=== PATIENT | female | born 1980 | race Caucasian/White ===

== ENCOUNTER 2017-04-21 15:22 | Emergency (ER) | payer SELFPAY ==
[~2017-04-21] VITALS: Ht 167.6 cm; Wt 110.9 kg
[~2017-04-21 15:22] MED LIST: CEPH-264 PO; FAMO-63 PO; NAPR500T PO
--- NOTE | 2017-04-21 15:56 | RAD ---
Chest, 2 views, 04/21/2017: History: Chest pain Comparison is made to a study from 06/18/2009. The heart size and pulmonary vascularity are normal. No pulmonary infiltrates are seen. There is no evidence of pleural fluid. A mild thoracic scoliosis may be positional. IMPRESSION: No acute cardiopulmonary abnormality is detected.
--- NOTE | 2017-04-21 15:56 | EKG ---
[address] [address] Test Date: 2017-04-21 Test Time: 15:32:34 Pat Name: CLEMENCIA IVAN Department: Room: Gender: F [employer] Solderer: : 1980 Requested By: BOO GRAY Order Number: [id number] Reading MD: Fran Barraza Measurements Intervals [place] Rate: 81 P: 51 OR: 168 QRS: 32 QRSD: 80 T: 57 QT: 370 QTc: 435 Interpretive Statements SINUS RHYTHM Electronically Signed On 04-28-2017 8:16:55 CDT by Fran Barraza
[2017-04-21] MEDS ORDERED: LIDO:MAALOX 1:1 20 ML SINGLE DOSE PO ONE (16:00)
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
[2017-04-21] MEDS ORDERED: PANTOPRAZOLE 40 MG TABLET. PO ONE (16:30)
[2017-04-21] MEDS ORDERED: PANT40TA3 PO (16:30)
[2017-04-21 16:36] VITALS: BP 107/65
== END 2017-04-21 16:45 | disposition home or self-care (01) ==
LOC: ER 15:22
DX: K21.9 Gastro-esophageal reflux disease without esophagitis (principal); Z88.5 Allergy status to narcotic agent
CPT/HCPCS: 71020; 93005; 99284-25

== ENCOUNTER 2017-09-11 06:26 | Emergency (ER) | payer SELFPAY ==
[~2017-09-11] VITALS: Ht 167.6 cm; Wt 110.9 kg
[~2017-09-11 06:26] MED LIST changes: +NAPR-683 PO; -NAPR500T PO; +PANT40TA3 PO
[2017-09-11 06:28] VITALS: BP 121/77
--- NOTE | 2017-09-11 06:29 | PHYS DOC ---
Past History Past Medical History: No Pertinent History, Other Past Surgical History: Tubal ligation Additional Past Surgical Histo: D&C Smoking: Non-smoker Alcohol Use: None Drug Use: None Adult General Chief Complaint Chief Complaint: nausea, vomiting, diarrhea and headache [facility] HPI Patient is a 37 year old female who presents with migraine headache, nausea, vomiting, diarrhea. She states last night she developed a migraine headache after she was visiting someone in the hospital. She states she took her Excedrin and try to go to bed and then at 2 AM this morning she woke up with abdominal cramps and vomited. She states first time she vomited she saw us a little parts of blood mixed in with green stuff that she thought was bile. She states she can taste blood in her mouth. She then vomited several more times she states since 2 AM recheck here she vomited about a dozen times. She denies any other blood or tasting blood in the subsequent episodes of vomiting. She states when she gets the ER she had a loose stool in the waiting room and then as soon as she came back to the room she had a second loose stool. According to nurse they were green in nature and no blood noted. She states her abdominal pain is crampy in nature and feels better after she has a bowel movement. She states her headache is her normal migraine headache. She denies any fevers chills or neck stiffness. She states usually Excedrin helps but occasionally she has to take narcotic pain medicine at home and go to bed or get over it. She denies any recent traveling I states, she denies any other sick contacts currently. Review of Systems Review of Systems Constitutional: Denies fever or chills [] Eyes: Denies change in visual acuity, redness, or eye pain [] HENT: Denies nasal congestion or sore throat [] Respiratory: Denies cough or shortness of breath [] Cardiovascular: No additional information not addressed in HPI [] GI: Positive for abdominal pain, nausea, vomiting,diarrhea, denies any bloody stools : Denies dysuria or hematuria [] Musculoskeletal: Denies back pain or joint pain [] Integument: Denies rash or skin lesions [] Neurologic: Positive for headache, Denies focal weakness or sensory changes [] Endocrine: Denies polyuria or polydipsia [] All other systems were reviewed and found to be within normal limits, except as documented in this note. Allergies Allergies Allergies Coded Allergies Type Severity Reaction Last Updated Verified Penicillins Allergy Unknown 04/21/17 Yes acetaminophen Allergy Unknown 04/21/17 Yes amoxicillin Allergy Unknown 04/21/17 Yes shellfish derived Allergy Unknown 04/21/17 Yes codeine Adverse Reaction Intermediate 02/18/16 Yes Physical Exam Physical Exam Constitutional: Well developed, well nourished, no acute distress, non-toxic appearance. [] HENT: Normocephalic, atraumatic, bilateral external ears normal, oropharynx moist, no oral exudates, nose normal. [] Eyes: PERRLA, EOMI, conjunctiva normal, no discharge. [] Neck: Normal range of motion, no tenderness, supple, no stridor. [] Cardiovascular:Heart rate regular rhythm, no murmur [] Lungs & Thorax: Bilateral breath sounds clear to auscultation [] Abdomen: Bowel sounds normal, soft, no tenderness, no masses, no pulsatile masses. [] Skin: Warm, dry, no erythema, no rash. [] Back: No tenderness, no CVA tenderness. [] Extremities: No tenderness, no cyanosis, no clubbing, ROM intact, no edema. [] Neurologic: Alert and oriented X 3, normal motor function, normal sensory function, no focal deficits noted. [] Psychologic: Affect normal, judgement normal, mood normal. [] EKG EKG [] Radiology/Procedures Radiology/Procedures [] Impressions: Migraine headache Nausea vomiting diarrhea Course & Med Decision Making Course & Med Decision Making Pertinent Labs and Imaging studies reviewed. (See chart for details) Labs do not show any acute abnormality. She's not had any additional vomiting or diarrhea here. Her belly is benign. She feels better after she received Phenergan, Benadryl and fentanyl for her headache. Do not believe she has any nuchal rigidity or other concerning symptoms. She states she feels better and is ready to be discharged home. Return precautions given. Dragon Disclaimer Dragon Disclaimer This electronic medical record was generated, in whole or in part, using a voice recognition dictation system. Departure Departure: Impression: Primary Impression: Migraine Disposition: 01 HOME, SELF-CARE Condition: STABLE Referrals: PCP,NO (PCP) Patient Instructions: Migraine Headache, [id number], Nausea and Vomiting, [id number] Additional Instructions: You were seen today. Migraine headache, nausea vomiting and diarrhea. You have not had any additional vomiting or diarrhea in the ER. If you notice any more blood in the vomit or black tarry stools please return back to emergency room. You can take Zofran during the day for nausea. For your headache you can take benadryl and Phenergan. Both of these medicines will make you actually be sleepy. Because her phone don't drive or taking these. Please follow the instructions on the bottles. Do not drink alcohol or taking these medicines. You will need to follow-up with primary care physician within the next few days. We provided you list to choose a new primary care physician. She developed high fevers, confusion, neck stiffness, vomiting blood or black tarry stools or bright red blood in your stools then immediately return back to the ER. Scripts Ondansetron (ZOFRAN ODT) 4 Mg Tab.rapdis 1 TAB SL Q8HRS Y for NAUSEA, #8 TAB Prov: DIPESH CARL MD 09/11/17 Promethazine Hcl (PROMETHAZINE HCL) 25 Mg Tablet 1 TAB PO PRN Q6HRS Y for NAUSEA, #20 TAB Prov: DIPESH CARL MD 09/11/17 Problem Qualifiers Primary Impression: Migraine Migraine type: unspecified Status migrainosus presence: without status migrainosus Intractability: not intractable Qualified Codes: G43.909 - Migraine, unspecified, not intractable, without status migrainosus DIPESH CARL MD Sep 11, 2017 06:29
--- NOTE | 2017-09-11 06:59 | EKG ---
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
[2017-09-11] MEDS ORDERED: IV NORMAL SALINE 1,000ML 1,000 ML IV SCH (07:00)
[2017-09-11] MEDS ORDERED: PROMETHAZINE 12.5 MG in IV NORMAL SALINE 50ML 50 ML IV PRN (07:00)
[2017-09-11] MEDS ORDERED: IV NORMAL SALINE 1,000ML 1,000 ML IV ONE ×2 (07:00→08:30)
[2017-09-11] MEDS ORDERED: diphenhydrAMINE 50 MG/ML VIAL IVP ONE (07:00)
[2017-09-11] MEDS ORDERED: PROMETHAZINE 25 MG/ML VIAL IV ONE (07:07)
[2017-09-11] MEDS ORDERED: IV NORMAL SALINE 50ML 50 ML ONE (07:07)
[2017-09-11 07:26] LABS: BASO # 0.1 x10^3/uL (0.0-0.2); BASO % 1 % (0-3); EOS # 0.3 x10^3/uL (0.0-0.7); EOS % 2 % (0-3); HEMATOCRIT 39.4 % (36.0-47.0); HEMOGLOBIN 13.4 g/dL (12.0-15.5); LYMPH # 2.3 x10^3/uL (1.0-4.8); LYMPH % 17 % (24-48); MEAN CORPUSCULAR HEMOGLOBIN 29 pg (25-35); MEAN CORPUSCULAR HGB CONC 34 g/dL (31-37); MEAN CORPUSCULAR VOLUME 85 fL (79-100); MONO # 0.9 x10^3/uL (0.0-1.1); MONO % 7 % (0-9); NEUT # 9.9 x10^3uL (1.8-7.7); NEUT % 73 % (31-73); PLATELET COUNT 281 x10^3/uL (140-400); RED BLOOD COUNT 4.63 x10^6/uL (3.50-5.40); RED CELL DISTRIBUTION WIDTH 14.3 % (11.5-14.5); WHITE BLOOD COUNT 13.5 x10^3/uL (4.0-11.0)
[2017-09-11 07:46] LABS: ALBUMIN 3.8 g/dL (3.4-5.0); CALCIUM 9.8 mg/dL (8.5-10.1); CREATININE 0.9 mg/dL (0.6-1.0); DIRECT BILIRUBIN 0.1 mg/dL (0.0-0.2); GFR 70.8; POTASSIUM 4.2 mmol/L (3.5-5.1); TOTAL BILIRUBIN 0.5 mg/dL (0.2-1.0)
[2017-09-11 08:36] LABS: U PREG PATIENT NEGATIVE (NEG)
[2017-09-11 08:39] LABS: BACTERIA,URINE FEW /HPF (0-FEW); BILIRUBIN,URINE NEG (NEG); CLARITY,URINE HAZY; COLOR,URINE YELLOW; GLUCOSE,URINE NEG (NEG); NITRITE,URINE NEG (NEG); RBC,URINE OCC /HPF (0-2); SQUAMOUS EPITHELIAL CELL,UR FEW /LPF; UROBILINOGEN,URINE 0.2 mg/dL (0.2 mg/dL)
[2017-09-11] MEDS ORDERED: PROM25TA10 PO (09:45)
[2017-09-11] MEDS ORDERED: ONDA4TAB10 SL (09:45)
== END 2017-09-11 10:05 | disposition home or self-care (01) ==
LOC: ER 06:26
DX: G43.909 Migraine, unspecified, not intractable, without status migrainosus (principal); R19.7 Diarrhea, unspecified; Z88.0 Allergy status to penicillin; Z88.1 Allergy status to other antibiotic agents; Z88.5 Allergy status to narcotic agent; Z91.013 Allergy to seafood; Z88.6 Allergy status to analgesic agent
CPT/HCPCS: 36415; 80048; 80076; 81001; 81025; 82553; 85025; 85610; 85730; 93005; 96361; 96365; 96375; 99285; J1200; J2550; J3010; J7030

== ENCOUNTER 2018-06-28 20:18 | Emergency (ER) | payer SELFPAY ==
[~2018-06-28] VITALS: Ht 167.6 cm; Wt 108.9 kg
[~2018-06-28 20:18] MED LIST changes: +ONDA4TAB10 SL; +PROM25TA10 PO
--- NOTE | 2018-06-28 20:37 | ED.ADGEN ---
Past History Past Medical History: Migraines, Other Past Surgical History: Tubal ligation Additional Past Surgical Histo: D&C Smoking: Non-smoker Alcohol Use: None Drug Use: None Adult General Chief Complaint Chief Complaint ".. I rolled my ankle the other night.. it still hurts..." [facility] HPI Patient is a 38 year old female who presents with above hx and complaints Rt. foot and ankle sprain. Pain in mid foot and Rt. malleolus. Distal neurovascular intact. Pain with weightbearing. Is obvious swelling. Some laxity on anterior drawer of ankle joint . No upper leg tenderness. Patient denies any other injury. Review of Systems Review of Systems Constitutional: Denies fever or chills [] Eyes: Denies change in visual acuity, redness, or eye pain [] HENT: Denies nasal congestion or sore throat [] Respiratory: Denies cough or shortness of breath [] Cardiovascular: No additional information not addressed in HPI [] GI: Denies abdominal pain, nausea, vomiting, bloody stools or diarrhea [] : Denies dysuria or hematuria [] Musculoskeletal: Complains of right ankle and foot pain Integument: Denies rash or skin lesions [] Neurologic: Denies headache, focal weakness or sensory changes [] Endocrine: Denies polyuria or polydipsia [] All other systems were reviewed and found to be within normal limits, except as documented in this note. Family History Family History Noncontributory Current Medications Current Medications Current Medications Medications (Trade) Dose Ordered Sig/Ramesh Start Time Stop Time Status Last Admin Dose Admin Hydrocodone Bitartrate/ Ibuprofen (Vicoprofen 7.5-200) 2 tab 1X ONCE 06/28/18 21:45 06/28/18 21:56 DC Allergies Allergies Allergies Coded Allergies Type Severity Reaction Last Updated Verified Penicillins Allergy Unknown 04/21/17 Yes acetaminophen Allergy Unknown 04/21/17 Yes amoxicillin Allergy Unknown 04/21/17 Yes shellfish derived Allergy Unknown 04/21/17 Yes codeine Adverse Reaction Intermediate 02/18/16 Yes Physical Exam Physical Exam Constitutional: Well developed, well nourished, in moderate acute distress, non- toxic appearance. [] HENT: Normocephalic, atraumatic, bilateral external ears normal, oropharynx moist, no oral exudates, nose normal. [] Eyes: PERRLA, EOMI, conjunctiva normal, no discharge. [] Neck: Normal range of motion, no tenderness, supple, no stridor. [] Cardiovascular:Heart rate regular rhythm, no murmur [] Lungs & Thorax: Bilateral breath sounds clear to auscultation [] Abdomen: Bowel sounds normal, soft, no tenderness, no masses, no pulsatile masses. []Old surgery scar Skin: Warm, dry, no erythema, no rash. [] Back: No tenderness, no CVA tenderness. [] Extremities: No tenderness, no cyanosis, no clubbing, ROM intact, no edema. [] Except findings in right ankle as per history of present illness Neurologic: Alert and oriented X 3, normal motor function, normal sensory function, no focal deficits noted. [] Psychologic: Affect normal, judgement normal, mood normal. [] Current Patient Data Vital Signs Vital Signs Date Time Temp Pulse Resp B/P (MAP) Pulse Ox O2 Delivery O2 Flow Rate FiO2 06/28/18 20:18 98.6 90 18 97 Room Air EKG EKG [] Radiology/Procedures Radiology/Procedures My interpretation of right ankle and foot shows no obvious fracture dislocation. There is mild edema. See formal report when available.[] Course & Med Decision Making Course & Med Decision Making Pertinent Labs and Imaging studies reviewed. (See chart for details). Ice, elevation, rest, splint, and crutches. Take Tylenol and ibuprofen for pain. For severe pain may take Vicoprofen up 4 times a day. Follow-up primary care. Follow-up orthopedics. Return if any concerns. [] Final Impression Final Impression 1. Rt. ankle and foot sprain[] Dragon Disclaimer Dragon Disclaimer This electronic medical record was generated, in whole or in part, using a voice recognition dictation system. FRANKIE VALENZUELA MD Jun 28, 2018 20:37
[2018-06-28] MEDS ORDERED: HYDROcodon/IBUPROFEN 7.5/200MG 1 TAB TABLET PO ONE ×2 (21:00→21:45)
[2018-06-28] MEDS ORDERED: HYDR-1179 PO (21:42)
--- NOTE | 2018-06-28 21:44 | RAD ---
3 views right foot and 3 views right ankle HISTORY: Pain after sprain AP lateral oblique views were obtained of the right foot and right ankle 3 views right foot: The visualized osseous structures appear normal. 3 views right ankle: The visualized osseous structures appear normal. IMPRESSION: No acute findings. Electronically signed by: Isaak Ash III, MD (06/28/2018 9:40 PM) [id number]
--- NOTE | 2018-06-28 21:44 | RAD ---
3 views right foot and 3 views right ankle HISTORY: Pain after sprain AP lateral oblique views were obtained of the right foot and right ankle 3 views right foot: The visualized osseous structures appear normal. 3 views right ankle: The visualized osseous structures appear normal. IMPRESSION: No acute findings. Electronically signed by: Isaak Ash III, MD (06/28/2018 9:40 PM) [id number]
[2018-06-28 22:00] VITALS: BP 135/71
--- NOTE | 2018-06-28 22:54 | ED.ADGEN ---
Past History Past Medical History: Migraines, Other Past Surgical History: Tubal ligation Additional Past Surgical Histo: D&C Smoking: Non-smoker Alcohol Use: None Drug Use: None Adult General Chief Complaint Chief Complaint Note computer duplication of record- see other report for details. HPI HPI Patient is a 38 year old female who presents with ankle foot sprain. See duplicated record same date. Review of Systems Review of Systems Constitutional: Denies fever or chills [] Eyes: Denies change in visual acuity, redness, or eye pain [] HENT: Denies nasal congestion or sore throat [] Respiratory: Denies cough or shortness of breath [] Cardiovascular: No additional information not addressed in HPI [] GI: Denies abdominal pain, nausea, vomiting, bloody stools or diarrhea [] : Denies dysuria or hematuria [] Musculoskeletal: Denies back pain or joint pain [] Integument: Denies rash or skin lesions [] Neurologic: Denies headache, focal weakness or sensory changes [] Endocrine: Denies polyuria or polydipsia [] All other systems were reviewed and found to be within normal limits, except as documented in this note. Current Medications Current Medications Current Medications Medications (Trade) Dose Ordered Sig/Ramesh Start Time Stop Time Status Last Admin Dose Admin Hydrocodone Bitartrate/ Ibuprofen (Vicoprofen 7.5-200) 2 tab 1X ONCE 06/28/18 21:45 06/28/18 21:56 DC Allergies Allergies Allergies Coded Allergies Type Severity Reaction Last Updated Verified Penicillins Allergy Unknown 04/21/17 Yes acetaminophen Allergy Unknown 04/21/17 Yes amoxicillin Allergy Unknown 04/21/17 Yes shellfish derived Allergy Unknown 04/21/17 Yes codeine Adverse Reaction Intermediate 02/18/16 Yes Physical Exam Physical Exam Constitutional: Well developed, well nourished, no acute distress, non-toxic appearance. [] HENT: Normocephalic, atraumatic, bilateral external ears normal, oropharynx moist, no oral exudates, nose normal. [] Eyes: PERRLA, EOMI, conjunctiva normal, no discharge. [] Neck: Normal range of motion, no tenderness, supple, no stridor. [] Cardiovascular:Heart rate regular rhythm, no murmur [] Lungs & Thorax: Bilateral breath sounds clear to auscultation [] Abdomen: Bowel sounds normal, soft, no tenderness, no masses, no pulsatile masses. [] Skin: Warm, dry, no erythema, no rash. [] Back: No tenderness, no CVA tenderness. [] Extremities: No tenderness, no cyanosis, no clubbing, ROM intact, no edema. [] Neurologic: Alert and oriented X 3, normal motor function, normal sensory function, no focal deficits noted. [] Psychologic: Affect normal, judgement normal, mood normal. [] Current Patient Data Vital Signs Vital Signs Date Time Temp Pulse Resp B/P (MAP) Pulse Ox O2 Delivery O2 Flow Rate FiO2 06/28/18 22:00 82 18 135/71 (92) 97 Room Air 06/28/18 20:18 98.6 EKG EKG [] Radiology/Procedures Radiology/Procedures [] Course & Med Decision Making Course & Med Decision Making Pertinent Labs and Imaging studies reviewed. (See chart for details) [] Final Impression Final Impression 1. Ankle and foot sprain- See computer duplicated record.[] Dragon Disclaimer Dragon Disclaimer This electronic medical record was generated, in whole or in part, using a voice recognition dictation system. Dragon Disclaimer This chart was dictated in whole or in part using Voice Recognition software in a busy, high-work load, and often noisy Emergency Department environment. It may contain unintended and wholly unrecognized errors or omissions. Dragon Disclaimer This chart was dictated in whole or in part using Voice Recognition software in a busy, high-work load, and often noisy Emergency Department environment. It may contain unintended and wholly unrecognized errors or omissions. Discharge Summary Visit Information Final Diagnosis Problems Medical Problems: (1) Sprain and strain Status: Acute Brief Hospital Course Allergies Allergies Coded Allergies Type Severity Reaction Last Updated Verified Penicillins Allergy Unknown 04/21/17 Yes acetaminophen Allergy Unknown 04/21/17 Yes amoxicillin Allergy Unknown 04/21/17 Yes shellfish derived Allergy Unknown 04/21/17 Yes codeine Adverse Reaction Intermediate 02/18/16 Yes Vital Signs Vital Signs Date Time Temp Pulse Resp B/P (MAP) Pulse Ox O2 Delivery O2 Flow Rate FiO2 06/28/18 22:00 82 18 135/71 (92) 97 Room Air 06/28/18 20:18 98.6 Brief Hospital Course Ms. Borden is a 38 old female who presented with hx inversion Rt. and foot. Discharge Information Condition at Discharge: Improved, Stable Disposition/Orders: D/C to Home (Note computor duplication of record.) Dischare Medications Current Medications Hydrocodone Bitartrate/ Ibuprofen (Vicoprofen 7.5-200) 2 tab 1X ONCE PO Last administered on 06/28/18at 20:50; Admin Dose 2 TAB; Start 06/28/18 at 21:00; Stop 06/28/18 at 21:01; Status DC Hydrocodone Bitartrate/ Ibuprofen (Vicoprofen 7.5-200) 2 tab 1X ONCE PO ; Start 06/28/18 at 21:45; Stop 06/28/18 at 21:56; Status DC Active Scripts Active Hydrocodone-Ibuprofen 7.5-200 (Hydrocodone/Ibuprofen) 1 Each Tablet 1 Tab PO PRN Q6HRS PRN Zofran Odt (Ondansetron) 4 Mg Tab.rapdis 1 Tab SL Q8HRS PRN Promethazine Hcl 25 Mg Tablet 1 Tab PO PRN Q6HRS PRN Protonix (Pantoprazole Sodium) 40 Mg Tablet.dr 1 Tab PO DAILY Naprosyn (Naproxen) 500 Mg Tablet 1 Tab PO BID Pepcid (Famotidine) 20 Mg Tablet 1 Tab PO BID Keflex (Cephalexin) 500 Mg Capsule 2 Cap PO BID 7 Days Reported No Known Medications Prior To Admisstion (Info) Each 1 Each Discharge Summary Visit Information Final Diagnosis Problems Medical Problems: (1) Sprain and strain Status: Acute Brief Hospital Course Allergies Allergies Coded Allergies Type Severity Reaction Last Updated Verified Penicillins Allergy Unknown 04/21/17 Yes acetaminophen Allergy Unknown 04/21/17 Yes amoxicillin Allergy Unknown 04/21/17 Yes shellfish derived Allergy Unknown 04/21/17 Yes codeine Adverse Reaction Intermediate 02/18/16 Yes Vital Signs Vital Signs Date Time Temp Pulse Resp B/P (MAP) Pulse Ox O2 Delivery O2 Flow Rate FiO2 06/28/18 22:00 82 18 135/71 (92) 97 Room Air 06/28/18 20:18 98.6 Brief Hospital Course Ms. Boredn is a 38 old [sex] who presented with [ ] Discharge Information Dischare Medications Current Medications Hydrocodone Bitartrate/ Ibuprofen (Vicoprofen 7.5-200) 2 tab 1X ONCE PO Last administered on 06/28/18at 20:50; Admin Dose 2 TAB; Start 06/28/18 at 21:00; Stop 06/28/18 at 21:01; Status DC Hydrocodone Bitartrate/ Ibuprofen (Vicoprofen 7.5-200) 2 tab 1X ONCE PO ; Start 06/28/18 at 21:45; Stop 06/28/18 at 21:56; Status DC Active Scripts Active Hydrocodone-Ibuprofen 7.5-200 (Hydrocodone/Ibuprofen) 1 Each Tablet 1 Tab PO PRN Q6HRS PRN Zofran Odt (Ondansetron) 4 Mg Tab.rapdis 1 Tab SL Q8HRS PRN Promethazine Hcl 25 Mg Tablet 1 Tab PO PRN Q6HRS PRN Protonix (Pantoprazole Sodium) 40 Mg Tablet.dr 1 Tab PO DAILY Naprosyn (Naproxen) 500 Mg Tablet 1 Tab PO BID Pepcid (Famotidine) 20 Mg Tablet 1 Tab PO BID Keflex (Cephalexin) 500 Mg Capsule 2 Cap PO BID 7 Days Reported No Known Medications Prior To Admisstion (Info) Each 1 Each FRANKIE LOPEZ MD Jun 28, 2018 22:53
== END 2018-06-28 22:00 | disposition home or self-care (01) ==
LOC: ER 20:18
DX: S93.401A Sprain of unspecified ligament of right ankle, initial encounter (principal); S93.601A Unspecified sprain of right foot, initial encounter; G43.909 Migraine, unspecified, not intractable, without status migrainosus; Z88.0 Allergy status to penicillin; Z88.1 Allergy status to other antibiotic agents; Z88.5 Allergy status to narcotic agent; Z91.013 Allergy to seafood; Z88.6 Allergy status to analgesic agent; X50.9XXA Other and unspecified overexertion or strenuous movements or postures, initial encounter; Y93.89 Activity, other specified; Y92.89 Other specified places as the place of occurrence of the external cause; Y99.8 Other external cause status
CPT/HCPCS: 29515; 73610; 73630; 99283-25

== ENCOUNTER 2018-12-10 15:32 | Emergency (ER) | payer SELFPAY ==
[~2018-12-10] VITALS: Ht 167.6 cm; Wt 110.9 kg
[~2018-12-10 15:32] MED LIST changes: +HYDR-1179 PO
--- NOTE | 2018-12-10 16:01 | PHYS DOC ---
Past History Past Medical History: Migraines, Other Past Surgical History: Tubal ligation Additional Past Surgical Histo: D&C Smoking: Non-smoker Alcohol Use: None Drug Use: None Adult General Chief Complaint Chief Complaint: HEADACHE HPI HPI Patient is a 38-year-old female presents with a headache that started approximately a day and a half ago. Yesterday morning at about 10 while still experiencing the headache she started having speech difficulties. Speaking in a halting, broken manner rather than the normal flow of her words. She has taken Excedrin Migraine for this without any improvement. She has not had previous speech difficulty with previous migraines. She notes some nausea, no vomiting. Some photophobia, no phonophobia. She denies any fever. She denies any treatment that makes the discomfort better. She reports that the discomfort is severe and diffuse across her head.[] Review of Systems Review of Systems Constitutional: Denies fever or chills [] Eyes: Denies change in visual acuity, redness, or eye pain [] HENT: Denies nasal congestion or sore throat [] Respiratory: Denies cough or shortness of breath [] Cardiovascular: No chest pain or palpitations[] GI: Denies abdominal pain, nausea, vomiting, bloody stools or diarrhea [] : Denies dysuria or hematuria [] Musculoskeletal: Denies back pain or joint pain [] Integument: Denies rash or skin lesions [] Neurologic: Denies focal weakness or sensory changes, see history of present illness [] Endocrine: Denies polyuria or polydipsia [] All other systems were reviewed and found to be within normal limits, except as documented in this note. Allergies Allergies Allergies Coded Allergies Type Severity Reaction Last Updated Verified Penicillins Allergy Unknown 04/21/17 Yes acetaminophen Allergy Unknown 04/21/17 Yes amoxicillin Allergy Unknown 04/21/17 Yes shellfish derived Allergy Unknown 04/21/17 Yes codeine Adverse Reaction Intermediate 02/18/16 Yes Physical Exam Physical Exam Constitutional: Well developed, well nourished, mild discomfort, non-toxic appearance. [] HENT: Normocephalic, atraumatic, bilateral external ears normal, oropharynx moist, no oral exudates, nose normal. [] Eyes: PERRLA, EOMI, conjunctiva normal, no discharge. [] Neck: Normal range of motion, no tenderness, supple, no stridor. [] Cardiovascular:Heart rate regular rhythm, no murmur [] Lungs & Thorax: Bilateral breath sounds clear to auscultation [] Abdomen: Bowel sounds normal, soft, no tenderness, no masses, no pulsatile masses. [] Skin: Warm, dry, no erythema, no rash. [] Back: No tenderness, no CVA tenderness. [] Extremities: No tenderness, no cyanosis, no clubbing, ROM intact, no edema. [] Neurologic: Alert and oriented X 3, normal motor function, normal sensory function. Her speech has a 0.25-0.5 second pause between words. The speech is appropriate, no slurred speech, no neologisms. Normal rapid repetitive and alternating movements.[] Psychologic: Affect normal, judgement normal, mood normal. [] EKG EKG EKG shows a sinus rhythm at 70 bpm, normal axis, normal QTC, no ST elevations. No old EKG available for comparison. Interpreted by me at 1732.[] Radiology/Procedures Radiology/Procedures CT head without contrast dated 12/10/2018. No comparison available. CLINICAL INDICATION: Headache and speech difficulties. TECHNIQUE: Contiguous axial imaging of the head was performed from skull base to vertex. No contrast administered. One or more of the following individualized dose reduction techniques were utilized for this examination: 1. Automated exposure control 2. Adjustment of the mA and/or kV according to patient size 3. Use of iterative reconstruction technique. FINDINGS: Ventricles and sulci are within normal limits for age. No midline shift or mass effect. Brain parenchyma is of normal attenuation. No hemorrhage or extra-axial collection. Posterior fossa and brainstem unremarkable. Visualized paranasal sinuses and mastoid air cells are clear. No apparent calvarial abnormality. IMPRESSION: No evidence of acute intracranial abnormality.[] Course & Med Decision Making Course & Med Decision Making Pertinent Labs and Imaging studies reviewed. (See chart for details) ED course: Patient arrived, was placed in bed, and tolerated exam well. She was transported to and from [place] with any complications. She received IV fluids as well as medicines to help with pain and nausea. These relieved her headache and her nausea, however her speech difficulties remained. After the return of the laboratory and imaging findings initial consultation was made with the hospitalist here at [facility]. Due to lack of more advanced imaging beyond the CT scanner, he deferred. Consultation was made with the hospitalist services [facility] for transfer and admission. Dr. Khanna graciously accepted. She was transferred in improved condition. Medical decision making: Concerned about the possibility of a stroke to Broca's area given the speech difficulty. This may be a migraine variant however she does not have a consistent pattern with her migraines with each one presenting differently. Additionally symptoms did not improve with the migraine medicine. There is no evidence of meningitis or encephalitis. No evidence of intracranial bleed. No tumor noted. No significant electrolyte abnormality. No evidence of common drugs of abuse. No evidence of eclampsia/preeclampsia.[] Dragon Disclaimer Dragon Disclaimer This electronic medical record was generated, in whole or in part, using a voice recognition dictation system. Departure Departure: Impression: Primary Impression: Difficulty with speech Additional Impressions: National Institutes of Health (NIH) Stroke Scale best language score 1, mild to moderate aphasia, some loss of fluency, reduction of speech and/or comprehension, makes conversation about provided material difficult or impossible Headache Disposition: 05 TRANSFER OTHER Condition: IMPROVED Referrals: PCP,NO (PCP) Problem Qualifiers Additional Impressions: Headache Headache type: unspecified Headache chronicity pattern: acute headache Intractability: not intractable Qualified Codes: R51 - Headache ADALBERTO FLORES DO Dec 10, 2018 16:01
[2018-12-10] MEDS: diphenhydrAMINE 50 MG/ML VIAL IVP ONE (16:08)
[2018-12-10] MEDS: METOCLOPRAMIDE HCL 10 MG/2 ML VIAL. IV ONE (16:08)
[2018-12-10] MEDS: IV NORMAL SALINE 1,000ML 1,000 ML IV ONE (16:09)
--- NOTE | 2018-12-10 16:13 | RAD ---
CT head without contrast dated 12/10/2018. No comparison available. CLINICAL INDICATION: Headache and speech difficulties. TECHNIQUE: Contiguous axial imaging of the head was performed from skull base to vertex. No contrast administered. One or more of the following individualized dose reduction techniques were utilized for this examination: 1. Automated exposure control 2. Adjustment of the mA and/or kV according to patient size 3. Use of iterative reconstruction technique. FINDINGS: Ventricles and sulci are within normal limits for age. No midline shift or mass effect. Brain parenchyma is of normal attenuation. No hemorrhage or extra-axial collection. Posterior fossa and brainstem unremarkable. Visualized paranasal sinuses and mastoid air cells are clear. No apparent calvarial abnormality. IMPRESSION: No evidence of acute intracranial abnormality. Electronically signed by: Bunny Monroe MD (12/10/2018 4:10 PM) [facility] [place]
[2018-12-10 16:39] LABS: BASO # 0.1 x10^3/uL (0.0-0.2); BASO % 1 % (0-3); EOS # 0.3 x10^3/uL (0.0-0.7); EOS % 3 % (0-3); HEMATOCRIT 39.6 % (36.0-47.0); HEMOGLOBIN 13.1 g/dL (12.0-15.5); LYMPH # 2.8 x10^3/uL (1.0-4.8); LYMPH % 26 % (24-48); MEAN CORPUSCULAR HEMOGLOBIN 28 pg (25-35); MEAN CORPUSCULAR HGB CONC 33 g/dL (31-37); MEAN CORPUSCULAR VOLUME 86 fL (79-100); MONO # 0.7 x10^3/uL (0.0-1.1); MONO % 6 % (0-9); NEUT # 7.1 x10^3uL (1.8-7.7); NEUT % 64 % (31-73); PLATELET COUNT 302 x10^3/uL (140-400); RED CELL DISTRIBUTION WIDTH 14.2 % (11.5-14.5); WHITE BLOOD COUNT 11.1 x10^3/uL (4.0-11.0)
[2018-12-10 16:43] LABS: BARBITURATES NEG (NEG); BENZODIAZEPINES NEG (NEG); CANNABINOIDS NEG (NEG); COCAINE NEG (NEG); METHADONE NEG (NEG); OPIATES NEG (NEG); PHENCYCLIDINE NEG (NEG)
[2018-12-10 16:44] LABS: AMPHETAMINE/METHAMPHETAMINE NEG (NEG)
[2018-12-10 16:46] LABS: PREG TEST PT QUAL NEGATIVE (NEG)
[2018-12-10 16:49] LABS: CLARITY,URINE HAZY; COLOR,URINE YELLOW
[2018-12-10 16:50] LABS: ALBUMIN 4.2 g/dL (3.4-5.0); ALBUMIN/GLOBULIN RATIO 1.1 (1.0-1.7); CALCIUM 10.1 mg/dL (8.5-10.1); CREATININE 0.8 mg/dL (0.6-1.0); GFR 80.7; POTASSIUM 4.2 mmol/L (3.5-5.1); TOTAL BILIRUBIN 0.5 mg/dL (0.2-1.0); TOTAL PROTEIN 7.9 g/dL (6.4-8.2)
[2018-12-10 16:50] LABS: BACTERIA,URINE 0 /HPF (0-FEW); BILIRUBIN,URINE NEG (NEG); GLUCOSE,URINE NEG (NEG); NITRITE,URINE NEG (NEG); RBC,URINE 0 /HPF (0-2); SQUAMOUS EPITHELIAL CELL,UR OCC /LPF; UROBILINOGEN,URINE 1 mg/dL (0.2 mg/dL); WBC,URINE OCC /HPF (0-4)
[2018-12-10] MEDS: KETOROLAC 15 MG/ML VIAL. IV ONE (16:53)
[2018-12-10] MEDS ORDERED: ASPIRIN 81 MG TAB.CHEW ONE (17:00)
[2018-12-10] MEDS: ASPIRIN 81 MG TAB.CHEW PO ONE (17:13)
[2018-12-10 17:21] VITALS: BP 123/62
== END 2018-12-10 18:16 | disposition short-term general hospital (02) ==
LOC: ER 15:32
DX: F81.81 Disorder of written expression (principal); R29.701 NIHSS score 1; R51 Headache; G43.909 Migraine, unspecified, not intractable, without status migrainosus; Z88.0 Allergy status to penicillin; Z88.6 Allergy status to analgesic agent; Z88.1 Allergy status to other antibiotic agents; Z88.5 Allergy status to narcotic agent; Z91.013 Allergy to seafood
CPT/HCPCS: 36415; 70450; 80053; 80307; 81001; 84703; 85025; 85610; 87086; 96374; 96375; 99285; J1200; J1885; J2765; J7030

== ENCOUNTER 2019-03-23 13:20 | Emergency (ER) | payer SELFPAY ==
[~2019-03-23] VITALS: Ht 167.6 cm; Wt 95.3 kg
[2019-03-23 13:31] VITALS: BP 162/105
--- NOTE | 2019-03-23 13:41 | PHYS DOC ---
Past History Past Medical History: No Pertinent History Past Surgical History: Tubal ligation, Other Additional Past Surgical Histo: D&C Smoking: Non-smoker Alcohol Use: None Drug Use: None Adult General Chief Complaint Chief Complaint: BURN/SMOKE INHALATION HPI HPI Patient is a 38-year-old female who presents with complaint of burn to her left forearm. Patient states that she had been walking in her kitchen with a bailey full of boiling water when dog when in front of her and she tripped over dog spilled water on her forearm. Patient states that forearm blistered almost immediately and much of the skin has already sloughed off. Patient rates pain at an 8 out of 10. She denies any other injuries.[] Review of Systems Review of Systems Constitutional: Denies fever or chills [] Respiratory: Denies cough or shortness of breath [] Cardiovascular: No additional information not addressed in HPI [] Integument: Positive burn to left forearm[] Neurologic: Denies headache, focal weakness or sensory changes [] Current Medications Current Medications Current Medications Medications (Trade) Dose Ordered Sig/Ramesh Start Time Stop Time Status Last Admin Dose Admin Ondansetron HCl (Zofran Odt) 4 mg 1X ONCE 03/23/19 13:45 03/23/19 13:46 UNV Oxycodone/ Acetaminophen (Percocet 10/325) 1 tab 1X ONCE 03/23/19 13:45 03/23/19 13:46 UNV Silver Sulfadiazine (Silvadene) 1 maria luisa 1X ONCE 03/23/19 13:45 03/23/19 13:46 UNV Allergies Allergies Allergies Coded Allergies Type Severity Reaction Last Updated Verified Penicillins Allergy Unknown 03/23/19 Yes amoxicillin Allergy Unknown 03/23/19 Yes shellfish derived Allergy Unknown 03/23/19 Yes codeine Adverse Reaction Intermediate 03/23/19 Yes Physical Exam Physical Exam Constitutional: Well developed, well nourished, no acute distress, non-toxic appearance. [] Cardiovascular:Heart rate regular rhythm, no murmur [] Lungs & Thorax: Bilateral breath sounds clear to auscultation [] Skin: There is partial thickness burn noted to the volar aspect of the left forearm extending from the wrist all the way up to the crease of the elbow. [] Neurologic: Alert and oriented X 3, no focal deficits noted. [] Current Patient Data Vital Signs Vital Signs Date Time Temp Pulse Resp B/P (MAP) Pulse Ox O2 Delivery O2 Flow Rate FiO2 03/23/19 13:31 98.3 111 18 98 Room Air EKG EKG [] Radiology/Procedures Radiology/Procedures [] Course & Med Decision Making Course & Med Decision Making Pertinent Labs and Imaging studies reviewed. (See chart for details) [] Dragon Disclaimer Dragon Disclaimer This electronic medical record was generated, in whole or in part, using a voice recognition dictation system. Departure Departure: Impression: Primary Impression: Partial thickness burn of left forearm Disposition: HOME, SELF-CARE Condition: STABLE Referrals: PCP,NO (PCP) Patient Instructions: Second-Degree Burn Scripts Silver Sulfadiazine (SILVADENE) 20 Gm Cream..g. 1 MARIA LUISA TP DAILY for burn, #50 GM Prov: SETPHAN TANNER Jr. DO 03/23/19 Oxycodone Hcl/Acetaminophen (PERCOCET 7.5-325 MG TABLET ) 1 Each Tablet 1 TAB PO PRN Q6HRS PRN for PAIN, #15 TAB Prov: STEPHAN TANNER Jr. DO 03/23/19 Problem Qualifiers Primary Impression: Partial thickness burn of left forearm Encounter type: initial encounter Qualified Codes: T22.212A - Burn of second degree of left forearm, initial encounter STEPHAN TANNER Jr. DO Mar 23, 2019 13:41
[2019-03-23] MEDS ORDERED: ONDANSETRON ODT 4 MG TAB.RAPDIS PO ONE (14:00)
[2019-03-23] MEDS ORDERED: silver sulfADIAZINE 1% CREAM 50GM JAR. TP ONE (14:00)
[2019-03-23] MEDS ORDERED: oxyCODONE/APAP 10/325 1 TAB TABLET PO ONE (14:00)
[2019-03-23] MEDS ORDERED: SILV20CR14 TP (14:02)
[2019-03-23] MEDS ORDERED: OXYC1TAB19 PO (14:02)
== END 2019-03-23 14:09 | disposition home or self-care (01) ==
LOC: ER 13:20
DX: T22.212A Burn of second degree of left forearm, initial encounter (principal); Z88.0 Allergy status to penicillin; Z88.1 Allergy status to other antibiotic agents; Z88.5 Allergy status to narcotic agent; Z91.013 Allergy to seafood; X12.XXXA Contact with other hot fluids, initial encounter; Y93.01 Activity, walking, marching and hiking; Y92.090 Kitchen in other non-institutional residence as the place of occurrence of the external cause; Y99.8 Other external cause status
CPT/HCPCS: 16020; 99284; Q0162

== ENCOUNTER 2019-03-25 23:32 | Emergency (ER) | payer SELFPAY ==
[~2019-03-25] VITALS: Ht 167.6 cm; Wt 108.8 kg
[~2019-03-25 23:32] MED LIST changes: +OXYC1TAB19 PO; +SILV20CR14 TP
[2019-03-25 23:51] VITALS: BP 123/81
[2019-03-26] MEDS ORDERED: ONDANSETRON ODT 4 MG TAB.RAPDIS ONE
[2019-03-26] MEDS ORDERED: HYDROcodone/APAP 5/325MG 1 TAB TABLET ONE (00:01)
[2019-03-26] MEDS ORDERED: ONDA4TAB12 PO (00:05)
[2019-03-26] MEDS ORDERED: HYDR-3165 PO (00:05)
[2019-03-26] MEDS ORDERED: ONDANSETRON ODT 4 MG TAB.RAPDIS PO ONE (00:15)
[2019-03-26] MEDS ORDERED: HYDROcodone/APAP 5/325MG 1 TAB TABLET PO ONE (00:15)
[2019-03-26] MEDS ORDERED: ONDANSETRON 4MG ODT 4TABLET STARTPACK. PO ONE ×2 (00:30)
--- NOTE | 2019-03-26 00:51 | PHYS DOC ---
Past History Past Medical History: No Pertinent History Past Surgical History: Tubal ligation, Other Additional Past Surgical Histo: D&C Smoking: Non-smoker Alcohol Use: None Drug Use: None Adult General Chief Complaint Chief Complaint: NAUSEA/VOMITING/DIARRHEA HPI HPI Patient is a 38-year-old female presenting with chief complaint of vomiting and diarrhea. She had some burning on her left forearm couple of days ago she says it takes him a whole hour to do a dressing change because the pain is so severe it makes her nauseous she has thrown up several times she even had some diarrhea she thinks is because the pain is so bad when she tries to change the dressing. Was not able to fill the Percocet because he was supposed to be $300 she tells me She does report a fever earlier in the day however nothing here today. Did have some abdominal pain earlier with the vomiting without is gone completely now no abdominal tenderness on examination patient states she is actually hungry she would like to try to eat something now. Review of Systems Review of Systems GI: : Denies dysuria or hematuria [] Musculoskeletal: Denies back pain or joint pain [] Neurologic: Denies headache, focal weakness or sensory changes [] Endocrine: Denies polyuria or polydipsia [] All other systems were reviewed and found to be within normal limits, except as documented in this note. Current Medications Current Medications Current Medications Medications (Trade) Dose Ordered Sig/Ramesh Start Time Stop Time Status Last Admin Dose Admin Acetaminophen/ Hydrocodone Bitart (Lortab 5/325) 2 tab 1X ONCE 03/26/19 00:15 03/26/19 00:16 DC 03/26/19 00:08 2 TAB Ondansetron HCl (Starter Pack - Zofran Odt) 1 startpack STK-MED ONCE 03/26/19 00:00 03/26/19 00:01 DC Ondansetron HCl (Zofran Odt) 4 mg STK-MED ONCE 03/26/19 00:00 03/26/19 00:01 DC Allergies Allergies Allergies Coded Allergies Type Severity Reaction Last Updated Verified Penicillins Allergy Unknown 03/26/19 Yes amoxicillin Allergy Unknown 03/26/19 Yes shellfish derived Allergy Unknown 03/26/19 Yes codeine Adverse Reaction Intermediate 03/26/19 Yes Physical Exam Physical Exam Constitutional: Well developed, well nourished, no acute distress, non-toxic appearance. [] HENT: Normocephalic, atraumatic, bilateral external ears normal, oropharynx moist, no oral exudates, nose normal. [] Eyes: PERRLA, EOMI, conjunctiva normal, no discharge. [] Neck: Normal range of motion, no tenderness, supple, no stridor. [] Cardiovascular:Heart rate regular rhythm, no murmur [] Lungs & Thorax: Bilateral breath sounds clear to auscultation [] Abdomen: Bowel sounds normal, soft, no tenderness, no masses, no pulsatile masses. [] Skin: There is a partial-thickness burn noted to the left forearm volar aspect around the tattoo. No streaking no induration no obvious signs of infection at this time distal radial pulse and sensation are grossly intact Extremities: No tenderness, no cyanosis, no clubbing, ROM intact, no edema. [] Neurologic: Alert and oriented X 3, normal motor function, normal sensory function, no focal deficits noted. [] Psychologic: Affect normal, judgement normal, mood normal. [] Current Patient Data Vital Signs Vital Signs Date Time Temp Pulse Resp B/P (MAP) Pulse Ox O2 Delivery O2 Flow Rate FiO2 03/25/19 23:51 97.7 77 20 123/81 (95) 97 Room Air Lab Results 7.7 degrees F (97.6-99.5) Patient Temperature * 97.7 degrees F (97.5-99.5) Temperature Source * Oral Blood Pressure Assessment Label 123/81 * Mean 95 * Location Right Arm * Source Automatic Cuff * Position Sitting Blood Pressure Systolic * 123 mm Hg (100-140) Blood Pressure Diastolic * 81 mm Hg (60-100) Pulse Rate * 77 beats per minute (60-90) Method * Monitor Respiratory Rate * 20 breaths per minute (12-24) Respiratory Depth * Normal Respiratory Effort * Normal Respiratory Pattern * Normal Oxygen Delivery Method * Room Air Bedside Pulse Oximetry * 97 % EKG EKG [] Radiology/Procedures Radiology/Procedures [] Course & Med Decision Making Course & Med Decision Making Pertinent Labs and Imaging studies reviewed. (See chart for details) []38-year-old female presenting with vomiting and diarrhea in the setting of increased pain related to dressing change of a forearm burn. I do think this is a reaction to the acute stressor. Patient was given symptomatically treatment in the emergency room prescription for Barnhart instead of Percocet which apparently was very expensive as well as ondansetron return precautions were discussed and don't think that she needs antibiotics at this time encouraged to keep the wound clean ice as needed for comfort use Silvadene dressing and dressing changes as instructed previously. Return impressions discussed in detail patient was understanding Myles Disclaimer Myles Disclaimer This electronic medical record was generated, in whole or in part, using a voice recognition dictation system. Departure Departure: Impression: Primary Impression: Nausea and vomiting Disposition: HOME, SELF-CARE Condition: STABLE Patient Instructions: Nausea and Vomiting, [id number] Scripts Hydrocodone Bit/Acetaminophen (NORCO 5-325 TABLET) 1 Each Tablet 1-2 TAB PO Q4-6HRS PRN for PAIN, #10 TAB Prov: CHEN ALVAREZ MD 03/26/19 Ondansetron (ONDANSETRON ODT) 4 Mg Tab.rapdis 1 TAB PO PRN Q6-8HRS PRN for NAUSEA/VOMITING, #16 TAB Prov: CHEN ALVAREZ MD 03/26/19 CHEN ALVAREZ MD Mar 26, 2019 00:51
== END 2019-03-26 00:16 | disposition home or self-care (01) ==
LOC: ER 23:32
DX: T22.012D Burn of unspecified degree of left forearm, subsequent encounter (principal); R11.2 Nausea with vomiting, unspecified; R19.7 Diarrhea, unspecified; Z98.51 Tubal ligation status; Z88.0 Allergy status to penicillin; Z88.1 Allergy status to other antibiotic agents; Z88.5 Allergy status to narcotic agent; Z91.013 Allergy to seafood; X08.8XXD Exposure to other specified smoke, fire and flames, subsequent encounter
CPT/HCPCS: 99284; Q0162

== ENCOUNTER 2020-11-08 16:19 | Emergency (ER) | payer SELFPAY ==
[~2020-11-08] VITALS: Ht 167.6 cm; Wt 109.0 kg
[~2020-11-08 16:19] MED LIST changes: +HYDR-3165 PO; +ONDA4TAB12 PO
[2020-11-08] MEDS ORDERED: ONDANSETRON PF 4 MG/2 ML VIAL. IVP ONE (17:00)
[2020-11-08] MEDS ORDERED: KETOROLAC 30 MG/ML VIAL. IVP ONE (17:00)
[2020-11-08] MEDS ORDERED: diphenhydrAMINE 50 MG/ML VIAL IVP ONE (17:00)
[2020-11-08] MEDS ORDERED: METOCLOPRAMIDE HCL 10 MG/2 ML VIAL. IVP ONE (17:00)
[2020-11-08] MEDS ORDERED: IV NORMAL SALINE 1,000ML 1,000 ML IV ONE (17:00)
--- NOTE | 2020-11-08 17:04 | RAD ---
EXAM: Head CT without contrast. HISTORY: Headache. TECHNIQUE: Computed tomographic images of the head were obtained without contrast. *One or more of the following individualized dose reduction techniques were utilized for this examina tion: 1. Automated exposure control. 2. Adjustment of the mA and/or kV according to patient size. 3. Use of iterative reconstruction technique. COMPARISON: 12/10/2018. FINDINGS: There is no acute or subacute extra-axial or intraparenchymal hemorrhage. There is no mass effect or midline shift. There is no hydrocephalus. The murrell-white matter differentiation pattern is intact. The visualized portions of the orbits, paranasal sinuses and mastoid air cells are unremarkable. No s uspicious calvarial lesion is seen. IMPRESSION: No acute intracranial findings. Electronically signed by: Fidelina Zamora MD (11/08/2020 5:01 PM) [facility]
--- NOTE | 2020-11-08 19:09 | PHYS DOC ---
Past History Past Medical History: No Pertinent History, Anxiety, Migraines, Other Additional Past Medical Histor: tubal (NOÉ BRADFORD APRN) Past Surgical History: No Surgical History, Tubal ligation, Other Additional Past Surgical Histo: D&C (NOÉ BRADFORD APRN) Smoking: Non-smoker Alcohol Use: None Drug Use: None (NOÉ BRADFORD APRN) Adult General Chief Complaint Chief Complaint: HEADACHE HPI HPI Patient is a 40-year-old female presents to the emergency department complaining of a headache that started last night at 2 AM while she was working on her computer. Patient states started in her right eye and then moved to the right side of her head with a thunderclap type presentation. Patient states she took 4 tablets of her Excedrin tension headache medications which usually helps when she gets bad headaches like this but had no relief in pain. Patient reports a 10/10 pain on a 1-10 pain scale. Patient states she is nauseated. States it hurts so bad that is making her talk funny. Patient states that she had similar type of verbal aphasia during a headache episode in 2018 in which she was sent to and had an MRI that was negative. Patient states she was supposed to follow-up with neurology but cannot afford to do so because she has no health insurance. Patient states that her headaches when they get th is bad make her extremities shake and tremor. Patient reports her last menstrual cycle ended 2 weeks ago. Patient states she takes no medications at home. Patient reports an allergy to codeine, shellfish, penicillin. Patient states she has a past medical history of PTSD in which she self treats. Patient states she does not have a primary care physician because she cannot afford health insurance. Patient reports photophobia, but denies visual changes, recent fever or chills, vomiting, diarrhea, abdominal pains. Patient denies any other physical complaints or physical concerns. (NOÉ BRADFORD APRN) Review of Systems Review of Systems 14 body systems of review of systems have been reviewed. See HPI for pertinent positives and negative responses, otherwise all other systems are negative, nonpertinent or noncontributory. (NOÉ BRADFORD APRN) Current Medications Current Medications Current Medications Medications (Trade) Dose Ordered Sig/Ramesh Start Time Stop Time Status Last Admin Dose Admin Diphenhydramine HCl (Benadryl) 50 mg 1X ONCE 11/08/20 17:00 11/08/20 17:14 DC 11/08/20 17:14 50 MG Ketorolac Tromethamine (Toradol 30mg Vial) 30 mg 1X ONCE 11/08/20 17:00 11/08/20 17:14 DC 11/08/20 17:16 30 MG Lorazepam (Ativan Inj) 0.5 mg 1X ONCE 11/08/20 19:00 11/08/20 19:01 Metoclopramide HCl (Reglan Vial) 10 mg 1X ONCE 11/08/20 17:00 11/08/20 17:14 DC 11/08/20 17:16 10 MG Ondansetron HCl (Zofran) 4 mg 1X ONCE 11/08/20 17:00 11/08/20 17:14 DC 11/08/20 17:14 4 MG Sodium Chloride 1,000 ml @ 1,000 mls/hr 1X ONCE 11/08/20 17:00 11/08/20 17:59 DC 11/08/20 17:12 1,000 MLS/HR (NOÉ BRADFORD APRN) Allergies Allergies Allergies Coded Allergies Type Severity Reaction Last Updated Verified Penicillins Allergy Unknown 11/08/20 Yes amoxicillin Allergy Unknown 11/08/20 Yes shellfish derived Allergy Unknown 11/08/20 Yes codeine Adverse Reaction Intermediate 11/08/20 Yes (NOÉ BRADFORD APRN) Physical Exam Physical Exam Constitutional: Well developed, well nourished, no acute distress, non-toxic appearance. 40-year-old female, has upper extremity tremors, covering her eyes from the light. HENT: Normocephalic, atraumatic, bilateral external ears normal, oropharynx moist, no oral exudates, nose normal. Oropharynx moist, pink, no deep tissue infectious process appreciated, bilateral TMs within normal limits, no drooling, no trismus appreciated. No lymphadenopathy of the head or neck. Eyes: PERRLA, EOMI, conjunctiva normal, no discharge. Pupils 4 mm. Satisfactory 6 cardinal eye movements. Neck: Normal range of motion, no tenderness, supple, no stridor. No meningismus signs, no nuchal rigidity. Cardiovascular:Heart rate regular rhythm, no murmur, heart sounds S1-S2 to auscultation. Lungs & Thorax: Bilateral breath sounds clear to auscultation, no adventitious lung sounds appreciated. Abdomen: Bowel sounds normal, soft, no tenderness, no masses, no pulsatile masses. Skin: Warm, dry, no erythema, no rash. Back: No tenderness, no CVA tenderness. Extremities: No tenderness, no cyanosis, no clubbing, ROM intact, no edema. Patient has bilateral upper extremity tremors, but will stop her tremors when asked to. Neurologic: Alert and oriented X 3, normal motor function, normal sensory function, no focal deficits noted. Psychologic: Affect normal, judgement normal, mood normal. (NOÉ BRADFORD APRN) Current Patient Data Vital Signs Vital Signs Date Time Temp Pulse Resp B/P (MAP) Pulse Ox O2 Delivery O2 Flow Rate FiO2 11/08/20 16:24 98.6 90 24 147/94 (111) 98 Room Air (NOÉ BRADFORD APRN) EKG EKG [] (NOÉ BRADFORD APRN) Radiology/Procedures Radiology/Procedures PATIENT: CLEMENCIA IVAN ACCOUNT: [id number] : 1980 LOCATION: ER AGE: 40 SEX: F EXAM STATUS: REG ER ORD. PHYSICIAN: NOÉ BRADFORD APRN REASON: SEVERE HEADACHE PROCEDURE: CT HEAD WO CONTRAST EXAM: Head CT without contrast. HISTORY: Headache. TECHNIQUE: Computed tomographic images of the head were obtained without contrast. *One or more of the following individualized dose reduction techniques were utilized for this examination: 1. Automated exposure control. 2. Adjustment of the mA and/or kV according to patient size. 3. Use of iterative reconstruction technique. COMPARISON: 12/10/2018. FINDINGS: There is no acute or subacute extra-axial or intraparenchymal hem orrhage. There is no mass effect or midline shift. There is no hydrocephalus. The murrell-white matter differentiation pattern is intact. The visualized portions of the orbits, paranasal sinuses and mastoid air cells are unremarkable. No suspicious calvarial lesion is seen. IMPRESSION: No acute intracranial findings. Electronically signed by: Fidelina Flores MD (11/08/2020 5:01 PM) [facility] DICTATED AND SIGNED BY: FIDELINA FLORES MD DATE: 11/08/20 1700 CC: NOÉ BRADFORD APRN; PCP,NO ~MTH0 0 (NOÉ BRADFORD APRN) Heart Score C/O Chest Pain: No Risk Factors: Risk Factors: DM, Current or recent (<one month) smoker, HTN, HLP, family history of CAD, obesity. Risk Scores: Risk Factors: DM, Current or recent (<one month) smoker, HTN, HLP, family hist ory of CAD, obesity. (NOÉ BRADFORD APRN) Course & Med Decision Making Course & Med Decision Making Pertinent Labs and Imaging studies reviewed. (See chart for details) 40-year-old female, vital signs reviewed, presents emergency department complaining of a severe headache. Patient did state this is the worst headache of her life. Patient did state "it was a thunderclap presentation". Related to patient presentation, CT head was ordered. A headache cocktail of 1 L normal saline, 50 mg Benadryl, 10 mg Reglan, 4 mg Zofran was ordered. Will consider IV Toradol after CT head read without acute bleed. CT head read by house radiologist negative for acute process, IV Toradol 30 mg ordered. ED nurse states patient is now anxious complaining it was the Benadryl, 1/2 mg Ativan ordered IV. After period of time reevaluated patient, patient found in no apparent distress, states her headache has resolved, no further speech aphasia complaints, no further remedy tremoring. Patient states she feels much better and is ready to go home. Discussed with patient need to follow-up with primary care for ongoing management of her severe headaches. Patient gave verbal understanding of this. Patient gave verbal understanding of discharge home instructions, follow-up with primary care, return to ER precautions and concerns, patient was discharged warren e without incident. (NOÉ BRADFORD APRN) Dragon Disclaimer Dragon Disclaimer This electronic medical record was generated, in whole or in part, using a voice recognition dictation system. (NOÉ BRADFORD APRN) Attending Co-Sign The patient was seen and interviewed as well as examined at the bedside. The chart was reviewed. The case was discussed. Agree with the plan of care. (ANURADHA BENSON DO) Departure Departure: Impression: Primary Impression: Headache Disposition: 01 HOME / SELF CARE / HOMELESS Condition: GOOD Referrals: PCP,NO (PCP) MARLENE ABREU Patient Instructions: General Headache Without Cause Additional Instructions: You were seen today in the emergency department for headache, your headache resolved satisfactorily with the headache cocktail he received, your CT head was negative for any concerning findings that would warrant an admission to the hospital or immediate attention by a neurologist or neurosurgeon. I have given you a primary care health provider to follow-up with to manage any ongoing headaches. These return to the emergency department for worsening symptoms or other concerns. EMERGENCY DEPARTMENT GENERAL DISCHARGE INSTRUCTIONS Thank you for coming to [facility] (ED) today and trusting us with you care. We trust that you had a positivie experience in our Emergency Department. If you wish to speak to the department management, you may call the director at [phone]. YOUR FOLLOW UP INSTRUCTIONS ARE FOLLOWS: 1. Do you have a private Doctor? If you do not have a private doctor, please ask for a resource list of physicians or clinics that may be able to assist you with follow up care. 2. The Emergency Physician has interpreted your x-rays. The X-Ray specialist will also review them. If there is a change in the findings, you will be notified in 48 hours when at all possible. 3. A lab test or culture has been done, your results will be reviewed and you will be notified if you need a change in treatment. ADDITIONAL INSTRUCTIONS AND INFORMATION: 1. Your care today has been supervised by a physician who is specially trained in emergency care. Many problems require more than one evaluation for a complete diagnosis and treatment. We recommend that you schedule your follow up appointment as recommended to ensure complete treatment of you illness or injury. If you are unable to obtain follow up care and continue to have a problem, or if your condition worsens, we recommend that you return to the ED. 2. We are not able to safely determine your condition over the phone nor are we able to give sound medical advice over the phone. For these safety reasons, if you call for medical advice we will ask you to come to the ED for further evaluation. 3. If you have any questions regarding these discharge instructions please call the ED at [phone]. SAFETY INFORMATION: In the interest of safety, wellness, and injury prevention; we encourage you to wear your sealbelt, if you smoke; quite smoking, and we encourage family to use a protective helmet for bicycling and other sporting events that present an increased risk for head injury. IF YOUR SYMPTOMS WORSEN OR NEW SYMPTOMS DEVELOP, OR YOU HAVE CONCERNS ABOUT YOUR CONDITION; OR IF YOUR CONDITION WORSENS WHILE YOU ARE WAITING FOR YOUR FOLLOW UP APPOINTMENT; EITHER CONTACT YOUR PRIMARY CARE DOCTOR, THE PHYSICIAN WHOSE NAME AND NUMBER YOU WERE GIVEN, OR RETURN TO THE ED IMMEDIATELY. Problem Qualifiers Primary Impression: Headache Headache type: unspecified Headache chronicity pattern: acute headache Intractability: not intractable Qualified Codes: R51.9 - Headache, unspecified NOÉ BRADFORD APRN November 08, 2020 19:09 ANURADHA BENSON DO November 09, 2020 06:10
[2020-11-08 19:11] VITALS: BP 126/59
== END 2020-11-08 19:19 | disposition home or self-care (01) ==
LOC: ER 16:19
DX: G44.209 Tension-type headache, unspecified, not intractable (principal); Z88.0 Allergy status to penicillin; Z88.1 Allergy status to other antibiotic agents; Z91.013 Allergy to seafood
CPT/HCPCS: 70450; 96361; 96374; 96375; 96376; 99284; J1200; J1885; J2060; J2405; J2765; J7030

== ENCOUNTER 2020-11-10 06:38 | Emergency (ER) | payer SELFPAY ==
[~2020-11-10] VITALS: Ht 167.6 cm; Wt 109.0 kg
[2020-11-10] MEDS ORDERED: diphenhydrAMINE 50 MG/ML VIAL IVP ONE (07:45)
[2020-11-10] MEDS ORDERED: HALOPERIDOL LACT 5 MG/ML VIAL. IVP ONE (07:45)
[2020-11-10] MEDS ORDERED: IV NORMAL SALINE 1,000ML 1,000 ML IV ONE (07:45)
[2020-11-10] MEDS ORDERED: KETOROLAC 15 MG/ML VIAL. IVP ONE (07:45)
[2020-11-10 07:59] LABS: BASO # 0.1 x10^3/uL (0.0-0.2); BASO % 1 % (0-3); EOS # 0.3 x10^3/uL (0.0-0.7); EOS % 3 % (0-3); HEMATOCRIT 40.6 % (36.0-47.0); HEMOGLOBIN 13.5 g/dL (12.0-15.5); LYMPH # 2.9 x10^3/uL (1.0-4.8); LYMPH % 24 % (24-48); MEAN CORPUSCULAR HEMOGLOBIN 28 pg (25-35); MEAN CORPUSCULAR HGB CONC 33 g/dL (31-37); MEAN CORPUSCULAR VOLUME 85 fL (79-100); MONO # 0.6 x10^3/uL (0.0-1.1); MONO % 5 % (0-9); NEUT # 8.3 x10^3uL (1.8-7.7); NEUT % 68 % (31-73); PLATELET COUNT 264 x10^3/uL (140-400); RED BLOOD COUNT 4.76 x10^6/uL (3.50-5.40); RED CELL DISTRIBUTION WIDTH 13.9 % (11.5-14.5); WHITE BLOOD COUNT 12.2 x10^3/uL (4.0-11.0)
[2020-11-10 08:00] LABS: CALCIUM 9.6 mg/dL (8.5-10.1); CREATININE 0.9 mg/dL (0.6-1.0); GFR 69.7; POTASSIUM 3.7 mmol/L (3.5-5.1)
[2020-11-10 08:06] LABS: ALBUMIN 4.4 g/dL (3.4-5.0); TOTAL BILIRUBIN 0.5 mg/dL (0.2-1.0); TOTAL PROTEIN 8.7 g/dL (6.4-8.2)
[2020-11-10 08:22] LABS: BACTERIA,URINE 0 /HPF (0-FEW); BILIRUBIN,URINE NEG (NEG); CLARITY,URINE CLEAR; COLOR,URINE YELLOW; GLUCOSE,URINE NEG (NEG); NITRITE,URINE NEG (NEG); UROBILINOGEN,URINE 0.2 mg/dL (0.2 mg/dL)
[2020-11-10 08:23] LABS: SQUAMOUS EPITHELIAL CELL,UR MANY /LPF
[2020-11-10] MEDS ORDERED: DIPH,PERTUSS(ACELL),TET VAC/PF 0.5 ML SYRINGE. VAX IM ONE ×2 (08:40→09:00)
[2020-11-10] MEDS ORDERED: ONDA4TAB12 PO (08:49)
--- NOTE | 2020-11-10 08:51 | PHYS DOC ---
Past History Past Medical History: No Pertinent History, Anxiety, Migraines, Other Additional Past Medical Histor: tubal Past Surgical History: No Surgical History, Tubal ligation, Other Additional Past Surgical Histo: D&C Smoking: Non-smoker Alcohol Use: None Drug Use: None General Adult EDM: Chief Complaint: NAUSEA/VOMITING/DIARRHEA HPI: HPI: Patient is a 40-year-old female coming in for nausea and vomiting. Patient states that she vomited one time and has had small amounts of clear liquid since then. Patient states she also has a cut on her left forehead. Patient felt lightheaded went to the ground and struck her head on the sink. No loss of consciousness. Patient states she felt weak. She has some stomach upset but is not having diarrhea. No fevers. Was seen for a migraine in the emergency department here 2 days ago. Patient unsure of her last tetanus vaccine. Review of Systems: Review of Systems: All other systems within normal limits except for as noted in the HPI Current Medications: Current Meds: Current Medications Medications (Trade) Dose Ordered Sig/Ramesh Start Time Stop Time Status Last Admin Dose Admin Diphenhydramine HCl (Benadryl) 25 mg 1X ONCE 11/10/20 07:45 11/10/20 08:00 DC 11/10/20 08:06 25 MG Diphtheria/ Pertussis/Tetanus Vacc (ADACEL TDap SYRINGE) 0.5 ml STK-MED ONCE 11/10/20 08:40 11/10/20 08:40 DC Haloperidol Lactate (Haldol) 5 mg 1X ONCE 11/10/20 07:45 11/10/20 08:00 DC 11/10/20 08:10 5 MG Ketorolac Tromethamine (Toradol 15mg Vial) 15 mg 1X ONCE 11/10/20 07:45 11/10/20 08:00 DC 11/10/20 08:08 15 MG Lorazepam (Ativan Inj) 2 mg STK-MED ONCE 11/10/20 08:40 11/10/20 08:40 DC Sodium Chloride 1,000 ml @ 1,000 mls/hr 1X ONCE 11/10/20 07:45 11/10/20 08:44 DC 11/10/20 07:15 1,000 MLS/HR Allergies: Allergies: Allergies Coded Allergies Type Severity Reaction Last Updated Verified Penicillins Allergy Unknown 11/10/20 Yes amoxicillin Allergy Unknown 11/10/20 Yes shellfish derived Allergy Unknown 11/10/20 Yes codeine Adverse Reaction Intermediate 11/10/20 Yes Physical Exam: PE: Constitutional: Well developed, well nourished, no acute distress, non-toxic appearance. [] HENT: Normocephalic, atraumatic, bilateral external ears normal, nose normal. [] Eyes: PERRLA, conjunctiva normal, no discharge. [] Neck: No rigidity, supple, no stridor. [] Cardiovascular: Regular rate and rhythm, brisk cap refill [] Lungs & Thorax: Non labored symmetric respirations, no tachypnea or respiratory distress [] Abdomen: Soft, nondistended. Skin: Warm, dry, no erythema, no rash. Abrasion to left forehead [] Back: Unremarkable Extremities: No deformities, range of motion grossly intact, no lower extremity edema [] Neurologic: Alert and oriented X 3, no focal deficits noted. [] Psychologic: Affect normal, judgement normal, mood normal. [] Current Patient Data: Labs: Laboratory Tests Test 11/10/20 07:10 11/10/20 07:50 11/10/20 08:01 White Blood Count 12.2 x10^3/uL (4.0-11.0) H Red Blood Count 4.76 x10^6/uL (3.50-5.40) Hemoglobin 13.5 g/dL (12.0-15.5) Hematocrit 40.6 % (36.0-47.0) Mean Corpuscular Volume 85 fL (79-100) Mean Corpuscular Hemoglobin 28 pg (25-35) Mean Corpuscular Hemoglobin Concent 33 g/dL (31-37) Red Cell Distribution Width 13.9 % (11.5-14.5) Platelet Count 264 x10^3/uL (140-400) Neutrophils (%) (Auto) 68 % (31-73) Lymphocytes (%) (Auto) 24 % (24-48) Monocytes (%) (Auto) 5 % (0-9) Eosinophils (%) (Auto) 3 % (0-3) Basophils (%) (Auto) 1 % (0-3) Neutrophils # (Auto) 8.3 x10^3uL (1.8-7.7) H Lymphocytes # (Auto) 2.9 x10^3/uL (1.0-4.8) Monocytes # (Auto) 0.6 x10^3/uL (0.0-1.1) Eosinophils # (Auto) 0.3 x10^3/uL (0.0-0.7) Basophils # (Auto) 0.1 x10^3/uL (0.0-0.2) Sodium Level 141 mmol/L (136-145) Potassium Level 3.7 mmol/L (3.5-5.1) Chloride Level 105 mmol/L (98-107) Carbon Dioxide Level 24 mmol/L (21-32) Anion Gap 12 (6-14) Blood Urea Nitrogen 11 mg/dL (7-20) Creatinine 0.9 mg/dL (0.6-1.0) Estimated GFR (Cockcroft-Gault) 69.7 BUN/Creatinine Ratio 12 (6-20) Glucose Level 116 mg/dL (70-99) H Calcium Level 9.6 mg/dL (8.5-10.1) Total Bilirubin 0.5 mg/dL (0.2-1.0) Aspartate Amino Transferase (AST) 18 U/L (15-37) Alanine Aminotransferase (ALT) 28 U/L (14-59) Alkaline Phosphatase 65 U/L (46-116) Total Protein 8.7 g/dL (6.4-8.2) H Albumin 4.4 g/dL (3.4-5.0) Albumin/Globulin Ratio 1.0 (1.0-1.7) Lipase 79 U/L (73-393) Urine Collection Type Unknown Urine Color Yellow Urine Clarity Clear Urine pH 7.0 Urine Specific Milnor 1.020 Urine Protein Neg (NEG-TRACE) Urine Glucose (UA) Neg mg/dL (NEG) Urine Ketones (Stick) Neg mg/dL (NEG) Urine Blood Trace (NEG) Urine Nitrite Neg (NEG) Urine Bilirubin Neg (NEG) Urine Urobilinogen Dipstick 0.2 mg/dL (0.2 mg/dL) Urine Leukocyte Esterase Trace (NEG) Urine RBC 6-10 /HPF (0-2) Urine WBC 5-10 /HPF (0-4) Urine Squamous Epithelial Cells Many /LPF Urine Bacteria 0 /HPF (0-FEW) POC Urine HCG, Qualitative hcg negative (Negative) Vital Signs: Vital Signs Date Time Temp Pulse Resp B/P (MAP) Pulse Ox O2 Delivery O2 Flow Rate FiO2 11/10/20 06:55 97.7 84 16 130/89 (103) 98 EKG: EKG: [] Radiology/Procedures: Radiology/Procedures: [] Heart Score: C/O Chest Pain: No Risk Factors: Risk Factors: DM, Current or recent (<one month) smoker, HTN, HLP, family history of CAD, obesity. Risk Scores: Score 0 - 3: 2.5% MACE over next 6 weeks - Discharge Home Score 4 - 6: 20.3% MACE over next 6 weeks - Admit for Clinical Observation Score 7 - 10: 72.7% MACE over next 6 weeks - Early Invasive Strategies Course & Med Decision Making: Course & Med Decision Making Pertinent Labs and Imaging studies reviewed. (See chart for details) [] Dragon Disclaimer: Dragon Disclaimer: This electronic medical record was generated, in whole or in part, using a voice recognition dictation system. Departure Departure: Impression: Primary Impression: Nausea and vomiting Disposition: 01 HOME / SELF CARE / HOMELESS Condition: STABLE Referrals: PCP,NO (PCP) Patient Instructions: Nausea and Vomiting Scripts Ondansetron (ONDANSETRON ODT) 4 Mg Tab.rapdis 1 TAB PO PRN Q6-8HRS PRN for NAUSEA, #10 TAB Prov: LARS MARTIN MD 11/10/20 LARS MARTIN MD November 10, 2020 08:51
[2020-11-10 09:00] VITALS: BP 126/87
== END 2020-11-10 09:05 | disposition home or self-care (01) ==
LOC: ER 06:38
DX: S00.81XA Abrasion of other part of head, initial encounter (principal); R11.2 Nausea with vomiting, unspecified; F41.9 Anxiety disorder, unspecified; G43.909 Migraine, unspecified, not intractable, without status migrainosus; R42 Dizziness and giddiness; Z88.0 Allergy status to penicillin; Z88.1 Allergy status to other antibiotic agents; Z88.6 Allergy status to analgesic agent; W45.8XXA Other foreign body or object entering through skin, initial encounter; Y93.89 Activity, other specified; Y92.89 Other specified places as the place of occurrence of the external cause; Y99.8 Other external cause status
CPT/HCPCS: 36415; 80053; 81001; 81025; 83690; 85025; 87086; 90471; 90715; 96361; 96374; 96375; 99284; J1200; J1630; J1885; J2060; J7030

== ENCOUNTER 2020-12-05 13:27 | Emergency (ER) | payer SELFPAY ==
[~2020-12-05] VITALS: Ht 167.6 cm; Wt 111.0 kg
[2020-12-05 13:33] VITALS: BP 154/76
--- NOTE | 2020-12-05 14:05 | PHYS DOC ---
Past History Past Medical History: Anxiety, Migraines, Other Additional Past Medical Histor: tubal Past Surgical History: No Surgical History, Tubal ligation, Other Additional Past Surgical Histo: D&C Smoking: Non-smoker Alcohol Use: Occasionally Drug Use: None Adult General Chief Complaint Chief Complaint: LACERATION/AVULSION HPI HPI Patient is a 40-year-old presenting for left forearm injury. Reports she was cleaning out garage and tripped over materials falling forward where she bumped her left upper extremity into a stack of books. She did not fall to the ground, did not hit her head, no loss of consciousness but reports when she stabilized herself she found that she impaled a small pair of scissors into the extensor surface of her left forearm. No changes in motor, sensory or neuro function, she kept pair of scissors in place and immediately presented to ER for evaluation as she did not know what today. Tetanus is up-to-date, no blood thinner use Review of Systems Review of Systems Fourteen body systems of review of systems have been reviewed. See HPI for pertinent positives and negative responses, other vizcaino all other systems are negative, non-pertinent or non-contributory Allergies Allergies Allergies Coded Allergies Type Severity Reaction Last Updated Verified Penicillins Allergy Unknown 11/10/20 Yes amoxicillin Allergy Unknown 11/10/20 Yes shellfish derived Allergy Unknown 11/10/20 Yes codeine Adverse Reaction Intermediate 11/10/20 Yes Physical Exam Physical Exam Constitutional: Well developed, well nourished, no acute distress, non-toxic appearance. HENT: Normocephalic, atraumatic, bilateral external ears normal, oropharynx moist, no oral exudates, nose normal. Eyes: PERRLA, EOMI, conjunctiva normal, no discharge. Neck: Normal range of motion, no tenderness, supple, no stridor. Cardiovascular: Heart rate regular, sinus rhythm, no murmurs rubs or gallops Lungs & Thorax: Bilateral breath sounds clear to auscultation Abdomen: Bowel sounds normal, soft, no tenderness, no masses, no pulsatile masses. Nonsurgical abdomen, no peritoneal signs Skin: Warm, dry, no erythema, no rash. Back: No tenderness, no CVA tenderness. Extremities: No tenderness, no cyanosis, no clubbing, ROM intact, no edema. Small pair of suture removal scissors present and impaled superficially to dorsal/extensor portion of left forearm. 5/5 muscle strength of left upper extremity. Cap refill of all distal left upper extremity digits less than 3 seconds, 2+ radial pulse bilaterally Neurologic: Alert and oriented X 3, medial radial and ulnar nerves of left upper extremity intact, normal motor & sensory function, no focal deficits noted. Psychologic: Affect normal, judgement normal, mood normal. Current Patient Data Vital Signs Vital Signs Date Time Temp Pulse Resp B/P (MAP) Pulse Ox O2 Delivery O2 Flow Rate FiO2 12/05/20 13:33 98.2 101 20 154/76 (102) 98 Room Air EKG EKG [] Radiology/Procedures Radiology/Procedures [] Heart Score C/O Chest Pain: No Risk Factors: Risk Factors: DM, Current or recent (<one month) smoker, HTN, HLP, family history of CAD, obesity. Risk Scores: Risk Factors: DM, Current or recent (<one month) smoker, HTN, HLP, family history of CAD, obesity. Course & Med Decision Making Course & Med Decision Making Discussed with the patient all findings and diagnostic testing. I discussed most likely diagnosis of superficial puncture wound. Scissors were manually removed and direct pressure applied with minimal bleeding. Wound was irrigated extensively and explored with no obvious foreign body or concern for muscular/ligamentous/tendon/neurovascular compromise. Joint decision made with patient to defer any type of repair due to superficial extent of injury. Tetanus is up-to-date. Joint decision made to start antibiotic therapy given concern for impending infection from old/dirty scissors. Ultimately, I stressed need for close outpatient follow-up to review today's ER visit. Strict return precautions were also discussed at length with good understanding by patient. Patient voiced understanding and agreement with the plan. Patient knows to come back for repeat evaluation if concerning signs or symptoms present prior to outpatient follow-up. Hemodynamically stable, ambulatory and well-appearing at time of disposition. Dragon Disclaimer Dragon Disclaimer This electronic medical record was generated, in whole or in part, using a voice recognition dictation system. Departure Departure: Impression: Primary Impression: Superficial injury of left forearm Disposition: HOME / SELF CARE / HOMELESS Condition: STABLE Referrals: PCP,NO (PCP) Patient Instructions: Skin Infections Additional Instructions: You were seen for a superficial laceration. As discussed, there is little indication for repair with sutures, glue and/or steven. As discussed, please keep the area clean and dry. Your tetanus is up-to-date. Joint decision was made to start antibiotics, you tolerated first dose of antibiotic given today while in ER, you should continue to take these as prescribed to completion. Return to the ED immediately if you develop any signs of infection like increased pain, redness, fever, or purulent (pus) drainage. Do not take baths, submerge the wound, or use a hot tub until your wound is healed. It was a pleasure to take care of you and I wish you the best going forward Scripts Cephalexin (CEPHALEXIN) 500 Mg Tablet 2 TAB PO BID for SKIN INFECTION for 5 Days, #20 TAB Prov: SARI SUAREZ DO 12/05/20 SARI SUAREZ DO Dec 05, 2020 14:05
[2020-12-05] MEDS ORDERED: CEPH500T PO (14:09)
[2020-12-05] MEDS ORDERED: CEPHALEXIN 250 MG CAPSULE PO ONE (14:15)
== END 2020-12-05 14:18 | disposition home or self-care (01) ==
LOC: ER 13:27
DX: S51.832A Puncture wound without foreign body of left forearm, initial encounter (principal); F41.9 Anxiety disorder, unspecified; Z98.51 Tubal ligation status; W01.0XXA Fall on same level from slipping, tripping and stumbling without subsequent striking against object, initial encounter; Y93.89 Activity, other specified; Y92.89 Other specified places as the place of occurrence of the external cause; Y99.8 Other external cause status
CPT/HCPCS: 99283